=== PATIENT | female | born 1970 | race Caucasian/White ===

== ENCOUNTER → 2018-06-20 19:57 | Outpatient (CLI) | payer OTHER, MEDICAID, SELFPAY ==
--- NOTE | 2018-06-20 20:08 | DI.MRI.S_ITS ---
PROCEDURE: MR HEAD/BRAIN WO CON INDICATIONS: MIGRAINES. Basal changes with vomiting. TECHNIQUE: Noncontrast axial T1 spin echo, axial T2 fast spin echo, sagittal and axial FLAIR, coronal T2 fast spin echo, axial gradient echo, axial diffusion and ADC through the brain. COMPARISON: None. FINDINGS: Image quality: This examination is limited by involuntary motion artifact. Images are repeated, with some improvement. CSF Spaces: Basal cisterns are patent. No extra-axial fluid collections. Ventricles are normal in size and shape. Brain: No intracranial masses or hemorrhage. Mcallister/white matter interface is normal. Brainstem appears normal. Diffusion-weighted images demonstrate no acute ischemic insult. No chronic ischemic insults. Normal intravascular flow voids are present. Skull and face: Calvarium has normal marrow signal. Orbits appear normal. Sinuses: Mild mucosal thickening is seen within the inferior maxillary sinuses. Sinuses and mastoids are otherwise clear. IMPRESSION: Limited study demonstrating no cause of patient's presenting history of migraine headaches. No masses or mass effect can be seen. No brain edema or hydrocephalus can be seen. Mild maxillary paranasal sinus disease. Dictated by: Monico Mayes M.D. on 06/21/2018 at 8:44 Approved by: Monico Mayes M.D. on 06/21/2018 at 8:47
== END ==
PROVIDERS: Visit Provider Nurse Practitioner Family
DX: G43.909 Migraine, unspecified, not intractable, without status migrainosus (principal); R11.10 Vomiting, unspecified; J32.0 Chronic maxillary sinusitis
CPT/HCPCS: 70551

== ENCOUNTER → 2018-07-30 15:42 | Outpatient (CLI) | payer OTHER, MEDICAID, SELFPAY ==
--- NOTE | 2018-07-30 15:45 | DI.MRI.S_ITS ---
PROCEDURE: MR ANGIO HEAD WO CON INDICATIONS: New onset thunderclap headache with nausea and vomiting TECHNIQUE: Noncontrast axial 3-D [id number] MR angiogram, with 3-dimensional maximum intensity projection (MIP) reformats of the internal carotid arteries and posterior circulation then performed. COMPARISON: [facility], , MR HEAD/BRAIN WO CON, 06/20/2018, 20:26. FINDINGS: Image quality: Excellent. Anterior circulation: Intracranial internal carotid arteries demonstrate normal size and intraluminal flow signal. The flow within the paired anterior cerebral arteries is normal and symmetric. The flow within the middle cerebral arteries is normal and symmetric. The anterior communicating artery is seen. No stenoses, occlusions, or aneurysms. Posterior circulation: Visualized portions of the vertebral arteries demonstrate normal caliber, and join to form a normal appearing basilar artery. The flow within the posterior cerebral arteries is normal and symmetric. No stenoses, occlusions, or aneurysms. IMPRESSION: 1. No areas of hemodynamically significant stenosis, vascular occlusion or aneurysmal dilation within the anterior or posterior circulation. Dictated by: Kizzy Rivera M.D. on 07/30/2018 at 16:39 Approved by: Kizzy Rivera M.D. on 07/30/2018 at 16:41
== END ==
PROVIDERS: Family Provider Nurse Practitioner Family; Visit Provider Specialist
DX: G44.53 Primary thunderclap headache (principal); R11.2 Nausea with vomiting, unspecified
CPT/HCPCS: 70544